=== PATIENT | female | born 1955 | race Caucasian/White ===

== ENCOUNTER → 2020-09-29 12:44 | Outpatient (CLI) | payer SELFPAY ==
--- NOTE | 2020-09-29 12:46 | EKG12_ITS ---
Test Reason : PRE OP Blood Pressure : / mmHG Vent. Rate : 084 BPM Atrial Rate : 091 BPM P-R Int : 154 ms QRS Dur : 080 ms QT Int : 316 ms P-R-T Axes : 068 045 078 degrees QTc Int : 373 ms Sinus rhythm with marked sinus arrhythmia with occasional Premature ventricular complexes Otherwise normal ECG Confirmed by TAMMY BLAS, JERRY ([id number]), purchasing expeditor ROHINI DOMINGUEZ ([id number]) on 09/30/2020 12:23:57 PM Referred By: Lan Kerns Confirmed By:JERRY MUNOZ MD
--- NOTE | 2020-09-29 12:48 | CT_ITS ---
STUDY: CT RIGHT LOWER EXTREMITY REASON FOR EXAM: Varus deformity of the right knee, preoperative planning. TECHNIQUE: Transaxial CT imaging of the lower extremity was performed. Coronal and sagittal images were reformatted. Individualized dose optimization techniques were used for this CT. COMPARISON: None. FINDINGS: Knee: There are marginal osteophytes, joint space narrowing, subchondral cystic change and pressure erosion of the medial tibial plateau (sagittal reconstructions 37-41). Normal lateral femoral condyle and lateral tibial plateau. There is preservation of the articular joint space of the lateral knee compartment. There are marginal osteophytes and mild joint space narrowing of the patellofemoral articulation (sagittal reconstruction 32). Normal proximal tibiofibular articulation. There is a small joint effusion. The quadriceps tendon is grossly normal. The patellar tendon is grossly normal. Normal Hoffa''s fat pad. There are small phleboliths anterior to the proximal tibia. Hip: There is joint space narrowing of the superior medial right hip (coronal reconstructions 53). There are partially calcified uterine fibroids (coronal reconstruction 63-106). Ankle: There is a very small subchondral cyst of the tibial plafond (sagittal reconstruction 32) without joint space narrowing of the tibiotalar articulation. Normal posterior subtalar, talonavicular and calcaneocuboid articulations. There are posterior and plantar calcaneal enthesophytes. CT/Extremity Lower without Contra IMPRESSION: Right knee osteoarthritis. Electronically Signed: Osmani Mccabe MD at 15:00 EDT Tel , Service support ,
== END ==
PROVIDERS: PCP Family Medicine; Referring Provider Specialist; Visit Provider Specialist
DX: M21.161 Varus deformity, not elsewhere classified, right knee (principal)
CPT/HCPCS: 73700; 93005

== ENCOUNTER 2020-10-13 11:44 | Observation (INO) | payer SELFPAY ==
--- NOTE | 2020-09-27 12:55 | PCM.HP.BLA ---
History and Physical History and Physical [facility] Patient Name: Marlena Pearce : 1955 From: FOZIA KLEIN PA-C DATE OF SURGERY: 10/13/2020 SCHEDULED PROCEDURE: right total knee arthroplasty HISTORY OF PRESENT ILLNESS: Preoperative history and physical exam was performed on September 27, 2020. This is a 65-year-old female whose had ongoing pain since October 2019 in which she had a fall on her right knee. Patient's pain has been sharp. It is increased with walking and going up and down steps. Patient has pain over the medial aspect of the knee. She does have start up pain. Patient feels unsafe walking without a cane. She has tried conservative measures including rest, ice with minimal relief. She has tried previous corticosteroid injection with the primary care doctor in January 2020 with only 1 day relief. She has been on oral medications including meloxicam, tramadol, Tylenol with minimal to no relief. Patient denies previous surgery on the right knee. She has continued to use a cane. She has had an MRI of the right knee. 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 We are obtaining surgical clearance from the primary care physician Dr. Vishnu Zurita. Patient denies any recent chest pain, shortness of breath, fevers chills, recent infections. After failing conservative measures and discussing treatment options with Dr. Lan Kerns, the patient does wish to proceed with a right total knee arthroplasty. She has medical history pertinent for hypertension. REVIEW OF SYSTEMS: ROS: Const: Denies change in appetite, fever and weight change. CV: Denies chest pain, heart murmur and irregular heartbeat. Resp: Denies cough, pneumonia, shortness of breath, tuberculosis and wheezing. GI: Denies constipation, diarrhea, heartburn, nausea, rectal itching, bloody stools and vomiting. : Denies incontinence. Musculo: Reports pain, trouble walking and weakness, but denies leg swelling. Skin: Denies Raynaud's, history of shingles and tattoo. Neuro: Denies ambulatory dysfunction, dizziness, numbness/tingling and tremor. Psych: Reports stress, but denies anxiety and insomnia. Ward/Lymph: Denies anemia, bleeding/bruising tendency and past transfusion. Reviewed and updated. PAST MEDICAL HISTORY: Advance Care Plan: No Advance Directives Effective Date: 05/20/2020 PMH: Medical Problems: Arthritis, Asthma, High Blood Pressure Accidents: Other - FELL THROUGH BARN FLOOR: 2 BLOOD COTS REMOVED FROM BRAIN (AGE 8) Surgical Hx: Section - (1995) Anesthesia Complications: None Assistive Devices: Cane, Dentures Reviewed and updated. SOCIAL HISTORY: SH: Marital: .Occupation: Homemaker.Work Status: Not Working Currently.Hand Dominance: Right-handed. Personal Habits: Cigarette Use: Never Smoked Cigarettes.Smokeless Tobacco: Never Used Smokeless Tobacco.E-Cigarette Use: Never used.Alcohol: Occasionally.Drug Use: Denies Use.Enjoy Exercising: Exercises 1-3 x/month. Reviewed and updated. VITALS: Ht: 60.9 Wt: 201lb Wt k.174 BMI: 38.1 BP: 140/90 Pulse: 72 Resp: 16 T: 97.5 T: 36.4C Pain Level: 3 ALLERGIES: No Known Drug Allergy MEDICATIONS: Meloxicam 7.5 mg take one tablet by mouth twice daily, Potassium 99 mg 1po qday, Raw Calcium with vitamin d-3, Cranberry 500 mg 1po qday, Lecithin Concentrate 400 mg 1po qday, Milk Thistle 500 mg 1po qday, Claritin-D 12 Hour 5-120 mg 1po qday, Losartan Potassium 100 mg 1po qday, Hydrochlorothiazide 12.5 mg 1po qday, Hydroxyzine HCL 50 mg 1po qday, Melatonin 10 mg 1po qday, Multivitamins 1po qday, Rd Aspirin Ec Low Dose 81 mg 2po daily, Melaleuca , Nutra Therm , Complete Gest , Levy Complex PRE-OP EXAM: General appearance:NORMAL Other: Eyes: Conjunctivae and lids: NORMAL Pupils: ERR Ears, Nose, Mouth, and Throat: NORMAL Other: Inspection of lips, teeth and gums: NORMAL Other: Neck: Examination of neck: no masses noted. Respiratory: Assessment of respiratory effort: NORMAL Other: Auscultation of lungs: clear to auscultation no wheezes, rhonchi or rales. Cardiovascular: Auscultation of heart: regular rate and rhythm, no murmurs, gallops or rubs. Exam of carotid arteries: NORMAL Other: Gastrointestinal: Exam of abdomen: soft, nontender, nondistended bowel sounds present. PHYSICAL EXAMINATION: Patient walks with an antalgic gait. Right knee is cool to touch without edema or signs of infection. Mild effusion. There is tenderness to palpation over the medial joint line and proximal tibia medially. Range of motion: Lacks 10 of full extension to 120 flexion. Varus alignment which is correctable on exam. Sensation intact to light touch. IMAGING STUDIES: Previous x-rays of the right knee reveal varus alignment with medial joint space narrowing, subchondral sclerosis, osteophyte formation consistent with severe medial compartment osteoarthritis. There appears to be a depression on the medial tibial plateau with underlying radiolucencies consistent with lesion versus resorption healing fracture. Which did show medial tibial plateau having an area of compression consistent with avascular necrosis or subchondral collapse secondary to osteoarthritis. There is associated patellofemoral disease. IMPRESSION: 1. 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 Hypertension 3. Asthma PLAN: Dr. Lan Kerns did discuss and review with the patient all treatment options including surgical versus nonsurgical options. Patient does wish to proceed with the above-stated procedure. Potential risks, benefits, and complications of the procedure were discussed in detail including but not limited to , infection, nerve and blood vessel damage, persistent pain, numbness, tingling, paresthesias, blood clot, pulmonary embolism, and requirement for possible further surgery. The patient expressed full understanding and has no further questions for the doctor. Patient does agree to proceed with the above-stated procedure and has signed the surgery consent form. We discussed the current risks associated with COVID 19. This does include the risk of exposure while in the hospital. Patient was reassured local hospitals have low infection rates and are taking all necessary precautions to avoid exposure to patients. In addition, we discussed strategies that can be used to help limit exposure including those that limit the patient's time in the hospital. Also using strategies to limit the patient's need for continued inpatient services after being discharged from the hospital. Patient was notified that we will need to comply with any screening or testing the hospital wishes to perform or that surgery may be delayed for any positive results. This dictation was created using voice recognition software. Phonetic and/or grammatical errors may exist. ___ I have re-examined the patient. There are no clinical changes since date of exam. ___ See progress notes for changes. ___ Dictated on admission Date: Time: Signature:
[2020-09-29 15:22] LABS: Absolute Lymphocyte Count 3.18 X10^3/uL (0.83-4.51); Absolute Neutrophil Count 3.9 X10^3/uL (2.0-7.7); Basophil# 0.07 X10^3/uL; Basophil% 0.8 % (0-1); Eosinophil# 0.44 X10^3/uL; Eosinophils% 5.3 % (0-5); Hematocrit 42.9 % (37-47); Hemoglobin 14.3 g/dL (12.0-15.0); Lymphocyte # 3.18 X10^3/ul (4.0); Lymphocyte % 38.1 % (19-41); Mean Corp Hgb Conc 33.3 g/dL (32-36); Mean Corpuscular Hgb 30.6 pg (27.0-32.0); Mean Corpuscular Volume 91.7 fL (81-99); Mean Platelet Vol. 11.2 fl (6.2-12.0); Monocyte% 8.4 % (0-10); NRBC Flagged by Analyzer 0 % (0-5); Neutrophil # 3.94 X10^3/uL (2.7-7.7); Neutrophil % 47.3 % (47-70); Platelet Count 327 K/mm3 (150-450); RBC Distribution Width CV 13.4 % (11.6-14.6); RBC Distribution Width SD 45.2 fl (35.1-43.9); Red Blood Count 4.68 M/mm3 (4.2-5.4); White Blood Count 8.3 K/mm3 (4.4-11.0)
[2020-09-29 15:44] LABS: Anion Gap 7 (5-15); BUN 22 mg/dL (7-18); BUN/Creat Ratio 26.1 RATIO (10-20); Calcium,Total 9.5 mg/dL (8.5-10.1); Chloride 103 mmol/L (98-107); Creatinine, Serum 0.84 mg/dL (0.55-1.02); EST Glomerular Filtration Rate 72 mL/min (>60); Est Glom Filt Rate - Afr Amer 87 mL/min (>60); Glucose 81 mg/dL (74-106); Magnesium 2.2 mg/dL (1.6-2.6); Potassium 3.2 mmol/L (3.5-5.1); Sodium Level 141 mmol/L (136-145)
[2020-10-13] VITALS (14 sets, daily range): BP systolic 88–159; BP diastolic 60–98; PULSE 67–101; RESP 16–20; TEMP 36.3–36.9; O2SAT 95–100; BMI 37.9
--- NOTE | 2020-10-13 | KNEE_PTH ---
PATIENT: AMANDA DEE LOC: [facility] U#:[id number] AGE/SX: 65/F ROOM: IA314 RE10/13/[address]: Dr. Lily Mithcell MD : 1955 BED: 1 DIS: 10/14/2020 SPEC #: [id number] RECD: 10/13/20 14:07 STATUS: MIRANDA REVicky #: [id number] CEE: 10/13/20 00:[address]: Lan Kerns DEPT: SURGICAL PATHOLOGY RECD BY: Zander Hobson ENTERED: 10/14/20 07:41 SP TYPE: TOTAL KNEE OTHR DR: MD Dr. Lily Esquivel MD Dr. Steven Widmer, MD Dr. Zachary Boyd, MD Tissues: Knee, NOS Procedures: Decalcification bone/plaque Surgery Specimen Level IV Comments: @ Ordering doctor for DEC edited from to DR.SWIDME Portillo by VALDO at 10/14/20 144 @ Ordering doctor for SUIV edited from to @ by VALDO at 10/14/20 144 @ Submitting doctor edited from to DR.SWIDME Portillo by VALDO at 10/14/20 1442 HEADER OPERATION: ERAS, total knee replacement robotic arm assist PRE-OP DIAGNOSIS: Right knee primary osteoarthritis TISSUE SUBMITTED: Bone and tissue right knee MICROSCOPIC DIAGNOSIS Bone and soft tissue of right knee, total knee resection: Consistent with severe degenerative joint disease. Mild synovial hyperplasia. AM:silviano 10/20/2020 MICROSCOPIC DESCRIPTION Slides are reviewed. GROSS DESCRIPTION Received is one container designated debrided bone and tissue right knee. The specimen consists of multiple fragments of fitzgerald-yellow bone measuring in aggregate 9 x 8 x 3 cm. Also in the specimen container are multiple fragments of yellow-white soft tissue measuring in aggregate 7.5 x 7 x 3 cm. A number of bony fragments contain articular surfaces consistent with tibial plateau and femoral condyle and displaying prominent osteophyte formation, eburnation, and bone erosion. Design Draftsman sections are submitted in two cassettes as follows: 1 - soft tissue, 2 - bone after decalcification. / KAYODE:silviano 10/14/20 TC:5 CPT: 19724, 42516
[2020-10-13] MEDS: Lactated Ringers 1,000 ML 999 ML IV ×2 (10:40→14:00)
[2020-10-13] MEDS: Scopolamine 1mg/72hr Patch 1 PATCH TD (10:50)
[2020-10-13] MEDS: Celecoxib 200 MG Capsule 400 MG PO (11:06)
[2020-10-13] MEDS: Gabapentin 600 MG Tablet PO (11:07)
[2020-10-13] MEDS: Acetaminophen 500 MG Tablet 1000 MG PO ×2 (11:07→20:28)
--- NOTE | 2020-10-13 11:45 | RAD_ITS ---
STUDY: X-RAY - RIGHT KNEE REASON FOR EXAM: Female, 65 years old. post op -- AP and Lateral xray of operative knee in PACU TECHNIQUE: 2 view(s) of the knee. COMPARISON: None. FINDINGS: Normal visualized distal femur. Normal visualized proximal tibia and fibula. Normal proximal tibiofibular articulation. There is a right catheter passing good alignment. RAD/Knee 1 or 2 Views IMPRESSION: There is a right catheter passing good alignment. Electronically Signed: Elise Null MD at 16:12 EDT Tel , Service support ,
--- NOTE | 2020-10-13 11:49 | OP.PCM_ITS ---
Report of Operation Date of Procedure: 10/13/20 Pre-Operative Diagnosis: Right knee primary osteoarthritis Post-Operative Diagnosis: Right knee primary osteoarthritis Surgery/Procedure Performed:: Robotic assisted minimally invasive right total knee replacement Description of Surgical Findings:: Stable knee with good patella tracking casino floor walker: Cricket Gary Type of Anesthesia:: Spinal Anesthesiologist: Tadeo Almaguer Special Medications: 2 g Ancef, 1 g TXA at incision, 1 g TXA closure, 10 mg Decadron, joint cocktail (5 mg Duramorph, 30 mL of 0.5% Ropivicaine, 1000 units of epinephrine, 30 mg of Toradol) Specimen's removed: Bony cuts were sent to pathology Estimated Blood Loss (mL): 35 Fluids Replaced: 100 mL crystalloid Description of Procedure: Implants used: 1. Rolo size 2 triathlon cruciate retaining distal femoral press-fit component 2. Rolo size 2 press-fit tritanium tibial baseplate 3. Rolo X3 9 mm CS polyethylene 4. Rolo X3 29 mm asymmetric patella Brief history operative indications: 65-year-old female with history of right knee osteoarthritis with radiographic findings with loss of joint space, osteophyte formation and subchondral sclerosis. Failed conservative measures as mentioned in the H&P. Discussion of total knee arthroplasty as well as risk and benefits were discussed the patient including but not limited to blood loss, DVTs, PEs, neurovascular damage, general risk of anesthesia including loss of life, and stiffness or instability were discussed with patient. Patient demonstrated understanding and was able to sign informed consent. Procedure: On the date of procedure patient's right lower extremity was marked in the preoperative area. The patient was then taken back to the operating room where the patient was placed on the table in the supine position. All bony prominences were identified a well-padded. Anesthesia assumed control of the C-spine and airway and remained controlled throughout the remainder of the procedure. A tourniquet was placed on the right upper thigh and the leg was prepped in a sterile fashion. The surgeon then scrubbed at this time .Upon reentering the room right lower extremity was draped in a standard orthopedic fashion. A timeout was then called and everyone agreed upon the side, the site, the procedure to be performed, patient's identity and antibiotics given. Esmarch bandage was used to exsanguinate the extremity and the tourniquet was placed up to 250 mmHg with the knee in flexion. A midline skin incision was made and sharp dissection was taken down through skin subcutaneous tissue and fat. The standard medial parapatellar incision was made and the patella was subluxed laterally. An Appropriate deep MCL release was done and the fat pad was resected. Our attention was then directed to the patella. The patella was everted and a flat resection was made. The knee was then flexed up in 2 femoral pins were placed inside the incision and 2 tibial pins were placed outside the incision in the medial tibia bicortically. Once this was completed the 2 checkpoints in the femur and tibia were placed. Knee was then flexed up and the bony landmarks were registered. Once this was completed knee was taken through range of motion and manually stressed allowing us to a plan for an appropriate tibial cut. The robotic arm was brought into the field sterilely and checkpoint and saw were registered. Based on the patient's deformity the tibial cut was made 3 degrees of varus. At this time the tensioner was then placed in the joint and ligament tension was checked at 90 degrees and full extension. Based on the patient's ligamentous tension appropriate adjustments were made to the operative plan and ligament releases were done. Once we were happy with our operative plan with balanced flexion and extension gaps our attention was directed to the femur. The robot was brought into the field sterilely and registered. Posterior condylar cuts, anterior chamfer cuts and anterior cuts were appropriately made for a size 2 femur. When these were completed the saws were switched out in the distal femoral and posterior chamfer cuts were made. Protecting the soft tissue throughout this time. A size 2 tibial base plate was selected. the knee was flexed to 90 degrees and the soft tissues and posterior osteophytes were removed from the joint. 40 cc of the periarticular injection was injected into the posterior medial corner of the joint. The appropriate trials were then placed on the femur and tibia. A trial polyethylene was trialed to ensure proper balancing and stability of the knee. The appropriate tibial internal rotation was then marked with a bovie. Our attention was then directed to the patella. The lug holes were drilled and the patella trial was placed. Patellar tracking was checked and deemed appropriate. Once we were happy lug holes were drilled for the femur and trial components were removed. the tibia was subluxed and pinned into place and the keel was punched and drilled appropriately. Final components were verified and opened, and cement was mixed in a vacuum. C4M Simplex cement was used. The wound was copiously irrigated with normal saline. The cyst on the medial tibial plateau was debrided using curettage. We then obtained bone graft from the bony cuts and packed this area. Overall size of the cyst was 1 cm in length by 4 mm in width by 4 mm in depth. Based on where the cyst was as well as placement of the bone packs for the press-fit and overall support of the implant as well as ability to bone graft local autograft we felt press fitting was still appropriate. When the cement was ready the components were impacted into place starting with the tibia, femur and finally cementing the patella. The trial poly component was placed and the knee was placed in full extension. All excess cement was removed in the process. Once the cement had cured the tracking, alignment and balance were verified and a size 9 mm CS polyethylene component was placed. Once the final components were placed a 3-minute dilute Betadine lavage was performed followed by an Irrisept lavage was performed and the wound was copiously irrigated with normal saline solution and the periarticular injection was given. The wound was closed in a layer rodriguez fashion using #1 vicryl interrupted sutures for the arthrotomy, 2-0 interrupted Vicryl suture for the subcuticular layer and evelia for final skin closure. A sterile compressive dressing was then placed. The patient was then awakened from anesthesia, transferred to the [facility] and transferred to the PACU for recovery. Post op plan DVT ppx: ASA 81mg BID, thigh high compression stockings Follow up: in office in 2 weeks for wound check PT: to start POD #0 at hospital, outpatient PT should be arranged. My physician cardiology physician assistant was a vital part of this case. He was important in appropriate retraction during the case, and protection of soft tissues during bony cuts. His intimate knowledge of the case and my steps aided in safe and expedient completion of the procedure as well as appropriate position of the leg during the case. He was also vital in assisting with closure under my direct supervision. Due to the complexity of this case robotic arm was used to assist in the surgery to improve accuracy and clinical outcomes. Grafts/Implants Used: We used allograft from bone cuts on the medial cyst - Complications No intraoperative complications - Admit VTE Documentation VTE Present on Admission: No VTE Mechan Device Prophylaxis: SCD's, Thigh High VALERIANO Bull VTE Pharm Prophylaxis ordered?: Yes
[2020-10-13] MEDS: Cefazolin 2 GM in 0.9% Normal Saline 100 ML IV (12:15)
[2020-10-13] MEDS: dexAMETHasone 10 MG/ML Vial IV (12:41)
[2020-10-13] MEDS: Joint Pain Solution (NO MORPHINE) 100 ML IV (13:41)
[2020-10-13] MEDS: Lactated Ringers 1,000 ML 125 ML IV (16:30)
--- NOTE | 2020-10-13 18:24 | PCM.CONS.GEN ---
Problem List (1) Status post total right knee replacement Status: Acute (2) Hypertension Status: Chronic (3) Osteoarthritis Status: Chronic Qualifiers: Osteoarthritis location: knee Osteoarthritis type: post-traumatic Laterality: right Qualified Code(s): M17.31 - Unilateral post-traumatic osteoarthritis, right knee (4) Hypokalemia Status: Acute Reason for Consult Date of Consultation: 10/13/20 Reason for Consultation: Medical management following right total knee History of Present Illness: The patient is a 65 year old F presented today for a elective right total knee arthroplasty. Per Dr. Kerns we are consulted for medical management. Patient has a medical history of hypertension and osteoarthritis, however patient takes a extensive list of supplements. Discussed with patient and she is aware supplements will not be provided while she is inpatient, verbalized understanding. Patient currently in bed resting comfortably, denies pain. Patient denies fever, chills, shortness of breath, chest pain, nausea, vomiting. Will review patient's home medications. Past Medical History Past Medical History (Chronic Problems): Chronic Problems Hypertension (Chronic) Osteoarthritis (Chronic) Allergies morphine Allergy (Verified 10/13/20 10:54) Other family allergy- shuts organs down Home Medications: Ambulatory Orders Medication Instructions Recorded Ascorbic Acid [Vitamin C] 500 mg PO BID 09/30/20 Aspirin [Aspirin EC] 162 mg PO QHS 09/30/20 Cardiomega 1 tablet PO DAILY 09/30/20 Complete Gest 2 tablet PO DAILY 09/30/20 Cranberry Conc/Ascorbic Acid 1 each PO DAILY 09/30/20 [Cranberry Concentrate Softgel] Herb Laxative 1 tablet PO DAILY 09/30/20 Hydrochlorothiazide [Hctz] 12.5 mg PO DAILY 09/30/20 Hydroxyzine HCl 50 mg PO PRN PRN 09/30/20 Lecithin 1,200 mg PO DAILY 09/30/20 Loratadine/Pseudoephedrine 1 each PO QODAY 09/30/20 [Claritin-D 24 Hour Tablet] Losartan Potassium [Cozaar] 100 mg PO DAILY 09/30/20 Melatonin 5 mg PO QHS 09/30/20 Meloxicam [Mobic] 7.5 mg PO BID 09/30/20 Milk Thistle 500 mg PO DAILY 09/30/20 Multivitamin with Minerals 2 each PO DAILY 09/30/20 [Multiple Vitamin] Nutratherm 2 tablet PO DAILY 09/30/20 Nutratrim 1 tablet PO DAILY 09/30/20 Potassium 99 mg PO QODAY 09/30/20 Provex 4 tablet PO DAILY 09/30/20 Raw Calcium 2 tablet PO DAILY 09/30/20 Recover 2 tablet PO DAILY 09/30/20 Surgical History: - - x1, brain surgery following fall from second story barn. Psychiatric History: No pertinent psych hx CLAIMS COORDINATOR History: No pertinent CLAIMS COORDINATOR history Lives: Spouse/ Significant Other Smoking Status: Never smoker Tobacco Use: Non-smoker Alcohol: Occasional Drugs: None - *Family History Maternal History Items: No pertinent history Paternal History Items: No pertinent history Review of Systems Constitutional: Denies: Chills, Fever, Weight Change HEENT: Denies: Head Aches, Sinus Congestion, Sinus Drainage Cardiovascular: Denies: Chest Pain, Palpitations Respiratory: Denies: Cough, Shortness of breath at rest, Sputum production Gastrointestinal: Denies: Abdominal Pain, Nausea, Vomiting Genitourinary: Denies: Dysuria Musculoskeletal: Denies: Joint Pain, Joint Tenderness Skin: Denies: Rash, Wounds Neurological: Denies: Numbness, Tingling, Focal weakness Psychiatric: Denies: Anxiety, Depression, Homicidal Ideations, Suicidal Ideations Hematologic/ Lymphatic: Denies: Easy Bruising, Easy Bleeding Patient Problems: Active and Suspected Problems Status post total right knee replacement (Acute) - Physical Exam Vitals/I&O's: Vital Signs Temp Pulse Resp BP Pulse Ox 97.5 F L 88 18 136/78 H 95 10/13/20 16:41 10/13/20 16:41 10/13/20 16:41 10/13/20 16:41 10/13/20 16:41 Oxygen Flow Rate (L/min) 6 Oxygen Delivery Method Room Air Weight: 200 lb 13.458 oz Body Mass Index (BMI) 37.9 Intake and Output for Last 24 Hours 10/11/20 10/12/20 10/13/20 23:59 23:59 23:59 Intake Total 2435.5 / 2435.5 Balance 2435.5 / 2435.5 General: Alert, Oriented x3, Cooperative HEENT: Atraumatic, PERRLA, EOMI, Normocephalic Neck: Supple, No JVD, Negative Carotid Bruits Lungs: Clear to auscultation, Normal air movement, No rhonchi, No wheeze, No rales Cardiovascular: Regular rate, Regular Rhythm, Normal S1, Normal S2, No murmurs Abdomen: Bowel Sounds Present, Soft, Non Tender Extremities: Capillary Refill Less than 3 Seconds, Edema - Postop knee, Peripheral Pulses Normal Skin: No rashes, No breakdown Musculoskeletal: No Tenderness to Palpation of Joints or Extremities Neurological: Cranial nerves II-XII grossly intact Psych/Mental Status: Normal Affect, Appropriate Microbiology Past 72 Hours 10/12/20 13:10 Interface Orders SARS-CoV-2 Antigen (Rapid) - Final Current Medications Acetaminophen (Acetaminophen 500 Mg Tablet) 1,000 mg PO Q8 [facility] Aspirin (Aspirin 81 Mg Tab.Chew) 81 mg PO BIDCM [facility] Enteral Nutritional Formula (Ensure Surgery 237 Ml Liquid) 237 ml PO TIDCM [facility] Last Admin: 10/13/20 18:11 Dose: Not Given Documented by: Famotidine (Famotidine 20 Mg Tablet) 20 mg PO DAILY [facility] Hydrochlorothiazide (Hydrochlorothiazide 12.5mg) 12.5 mg PO DAILY [facility] Hydromorphone HCl (Hydromorphone 0.5 Mg/0.5 Ml Syringe) 0.5 mg IV Q2H PRN PRN PRN Reason: Pain Score 6-10 Hydroxyzine Pamoate (Hydroxyzine Jane 25 Mg Capsule) 50 mg PO QHS PRN PRN PRN Reason: SLEEP Lactated Ringer's () 1,000 mls @ 125 mls/hr IV .Q8H [facility] Stop: 10/13/20 20:29 Last Admin: 10/13/20 16:30 Dose: 125 mls/hr Documented by: Cefazolin Sodium () 1 gm in 50 mls @ 150 mls/hr IV Q8H [facility] Stop: 10/14/20 04:34 Sodium Chloride () 250 mls @ 15 mls/hr IV .[id number] PRN PRN Reason: Saline Flush Sodium Chloride () 250 mls @ 15 mls/hr IV .[id number] PRN PRN Reason: Additional IVPB Infusion Insulin Human Lispro (Insulin Lispro 100 Unit/Ml Insuln.Pen) 1 - 6 unit SC Q4H PRN PRN; Protocol PRN Reason: BG>/= 180, SEE PROTOCOL Ketorolac Tromethamine (Ketorolac 15 Mg/Ml Vial) 15 mg IV Q6H PRN PRN PRN Reason: Pain Score 1-5 Stop: 10/15/20 11:45 Losartan Potassium (Losartan Potassium 100 Mg Tablet) 100 mg PO DAILY [facility] Melatonin (Melatonin 10 Mg Tablet) 5 mg PO QHS [facility] Meloxicam (Meloxicam 7.5 Mg Tablet) 7.5 mg PO BID [facility] Ondansetron HCl (Ondansetron 4 Mg/2 Ml Vial) 4 mg IV Q8H PRN PRN PRN Reason: NAUSEA Oxycodone HCl (Oxycodone 5 Mg Tablet) 5 - 10 mg PO Q4H PRN PRN PRN Reason: Pain Score 4-10 Promethazine HCl (Promethazine 25 Mg/Ml Syringe) 12.5 mg IM Q6H PRN PRN; Protocol PRN Reason: NAUSEA/VOMITING Senna/Docusate Sodium (Senna/Docusate Sodium 1 Tablet) 2 tablet PO BID [facility] Sodium Chloride (0.9% Saline Lock 10 Ml Syringe) 10 - 40 ml IV UD PRN PRN Reason: SALINE FLUSH Assessment/Plan All Active Problems Status post total right knee replacement (Acute) Hypokalemia (Acute) 1. Status post right knee arthroplasty related to osteoarthritis -Postop day 0. -Patient currently denies pain, pain medication regimen ordered per orthopedics. -PT/OT ordered. -Polar Care and Bryn wrap ordered. 2. Hypertension -Stable, continue home regimen. 3. Hypokalemia -Potassium chloride 40 mEq x 1 ordered. DVT prophylaxis-SCDs and thigh-high VALERIANO hose This patient was seen by TRESA Adames under the supervision of Dr. Calvo.
[2020-10-13] MEDS: Aspirin 81 MG TAB.CHEW PO (20:26)
[2020-10-13] MEDS: Potassium Chloride Oral Tablet 20 MEQ 40 MEQ PO (20:26)
[2020-10-13] MEDS: Senna/Docusate Sodium 1 Tablet 2 TABLET PO (20:28)
[2020-10-13] MEDS: Cefazolin 1 GM/50 ML BAG IV (20:28)
[2020-10-13] MEDS: MELATONIN 10 MG TABLET 5 MG PO (20:29)
[2020-10-13] MEDS: hydrOXYzine PAM 25 MG Capsule 50 MG PO (20:38)
[2020-10-14] MEDS: Ketorolac 15 MG/ML Vial IV (00:07)
[2020-10-14 03:53] VITALS: BP 115/72; PULSE 81; RESP 18; TEMP 36.7; O2SAT 94
[2020-10-14] MEDS: Cefazolin 1 GM/50 ML BAG IV (03:53)
[2020-10-14] MEDS: Acetaminophen 500 MG Tablet 1000 MG PO ×2 (04:00→14:14)
[2020-10-14 06:20] LABS: Hematocrit 39.8 % (37-47); Hemoglobin 13.1 g/dL (12.0-15.0); Mean Corp Hgb Conc 32.9 g/dL (32-36); Mean Corpuscular Hgb 30.4 pg (27.0-32.0); Mean Corpuscular Volume 92.3 fL (81-99); Mean Platelet Vol. 10.3 fl (6.2-12.0); Platelet Count 291 K/mm3 (150-450); RBC Distribution Width CV 13.3 % (11.6-14.6); RBC Distribution Width SD 45.1 fl (35.1-43.9); Red Blood Count 4.31 M/mm3 (4.2-5.4); White Blood Count 14.6 K/mm3 (4.4-11.0)
[2020-10-14] MEDS: 0.9% Saline Lock 10 ML Syringe IV (06:33)
[2020-10-14 06:48] LABS: Anion Gap 4 (5-15); BUN 14 mg/dL (7-18); BUN/Creat Ratio 21.3 RATIO (10-20); Calcium,Total 8.3 mg/dL (8.5-10.1); Chloride 110 mmol/L (98-107); Creatinine, Serum 0.66 mg/dL (0.55-1.02); EST Glomerular Filtration Rate 97 mL/min (>60); Est Glom Filt Rate - Afr Amer 117 mL/min (>60); Estimated Creatinine Clearance 65.84 ml/min; Glucose 134 mg/dL (74-106); Potassium 3.9 mmol/L (3.5-5.1); Sodium Level 141 mmol/L (136-145)
--- NOTE | 2020-10-14 06:50 | PN.ORTHO_ITS ---
Patient Problems: Active and Suspected Problems Status post total right knee replacement (Acute) Hypokalemia (Acute) Subjective: The patient was sitting in bedside chair upon examination. Patient denies any chest pain, shortness of breath, dizziness, lightheadedness, nausea or vomiting, or calf pain. Pain is controlled on medications. No adverse overnight events. Overall this morning patient is doing very well and has little to no pain in the knee. She did have a block perioperatively. Patient states she does not rememb er if she set up physical therapy but would like to try to get home health for the first 2 weeks. Objective: Vital signs stable and afebrile. Patient is able to plantarflex and dorsiflex actively. Sensation is intact to light touch to saphenous, sural, superficial and deep peroneal, and tibial distribution. Proximal pin site dressing and main dressing are clean dry and intact. Minimal drainage over the distal pin site Negative Homans bilaterally, negative signs and symptoms of DVT. - Physical Exam Vitals/I&O's: Vital Signs Temp Pulse Resp BP Pulse Ox 98.0 F 81 18 115/72 94 10/14/20 03:53 10/14/20 03:53 10/14/20 03:53 10/14/20 03:53 10/14/20 03:53 Oxygen Flow Rate (L/min) 6 Oxygen Delivery Method Room Air Weight: 91.1 kg Body Mass Index (BMI) 37.9 Intake and Output for Last 24 Hours 10/12/20 10/13/20 10/14/20 23:59 23:59 23:59 Intake Total 2735.5 / 2785.5 1050 / 1050 Output Total 1600 / 1600 200 / 200 Balance 1135.5 / 1185.5 850 / 850 General: Alert, Oriented x3, Cooperative, No apparent distress Microbiology Past 72 Hours 10/12/20 13:10 Interface Orders SARS-CoV-2 Antigen (Rapid) - Final Laboratory Results 10/14/20 06:12: WBC 14.6 H, RBC 4.31, Hgb 13.1, Hct 39.8, MCV 92.3, MCH 30.4, MCHC 32.9, RDW Std Deviation 45.1 H, RDW Coeff of Kaushal 13.3, Plt Count 291, MPV 10.3 10/14/20 06:12: Sodium 141, Potassium 3.9, Chloride 110 H, Carbon Dioxide 27.0, Anion Gap 4 L, BUN 14, Creatinine 0.66, Estim Creat Clear Calc 65.84, Est GFR (MDRD) Af Amer 117, Est GFR (MDRD) Non-Af 97, BUN/Creatinine Ratio 21.3 H, Glucose 134 H, Calcium 8.3 L Current Medications Acetaminophen (Acetaminophen 500 Mg Tablet) 1,000 mg PO Q8 [facility] Last Admin: 10/14/20 04:00 Dose: 1,000 mg Documented by: Aspirin (Aspirin 81 Mg Tab.Chew) 81 mg PO BIDCM [facility] Last Admin: 10/13/20 20:26 Dose: 81 mg Documented by: Enteral Nutritional Formula (Ensure Surgery 237 Ml Liquid) 237 ml PO TIDCM [facility] Last Admin: 10/13/20 20:05 Dose: Not Given Documented by: Famotidine (Famotidine 20 Mg Tablet) 20 mg PO DAILY [facility] Hydrochlorothiazide (Hydrochlorothiazide 12.5mg) 12.5 mg PO DAILY [facility] Hydromorphone HCl (Hydromorphone 0.5 Mg/0.5 Ml Syringe) 0.5 mg IV Q2H PRN PRN PRN Reason: Pain Score 6-10 Hydroxyzine Pamoate (Hydroxyzine Jane 25 Mg Capsule) 50 mg PO QHS PRN PRN PRN Reason: SLEEP Last Admin: 10/13/20 20:38 Dose: 50 mg Documented by: Sodium Chloride () 250 mls @ 15 mls/hr IV .[id number] PRN PRN Reason: Saline Flush Sodium Chloride () 250 mls @ 15 mls/hr IV .[id number] PRN PRN Reason: Additional IVPB Infusion Insulin Human Lispro (Insulin Lispro 100 Unit/Ml Insuln.Pen) 1 - 6 unit SC Q4H PRN PRN; Protocol PRN Reason: BG>/= 180, SEE PROTOCOL Ketorolac Tromethamine (Ketorolac 15 Mg/Ml Vial) 15 mg IV Q6H PRN PRN PRN Reason: Pain Score 1-5 Stop: 10/15/20 11:45 Last Admin: 10/14/20 00:07 Dose: 15 mg Documented by: Losartan Potassium (Losartan Potassium 100 Mg Tablet) 100 mg PO DAILY [facility] Melatonin (Melatonin 10 Mg Tablet) 5 mg PO QHS [facility] Last Admin: 10/13/20 20:29 Dose: 5 mg Documented by: Meloxicam (Meloxicam 7.5 Mg Tablet) 7.5 mg PO BID [facility] Ondansetron HCl (Ondansetron 4 Mg/2 Ml Vial) 4 mg IV Q8H PRN PRN PRN Reason: NAUSEA Oxycodone HCl (Oxycodone 5 Mg Tablet) 5 - 10 mg PO Q4H PRN PRN PRN Reason: Pain Score 4-10 Promethazine HCl (Promethazine 25 Mg/Ml Syringe) 12.5 mg IM Q6H PRN PRN; Protocol PRN Reason: NAUSEA/VOMITING Senna/Docusate Sodium (Senna/Docusate Sodium 1 Tablet) 2 tablet PO BID [facility] Last Admin: 10/13/20 20:28 Dose: 2 tablet Documented by: Sodium Chloride (0.9% Saline Lock 10 Ml Syringe) 10 - 40 ml IV UD PRN PRN Reason: SALINE FLUSH Last Admin: 10/14/20 06:33 Dose: 10 ml Documented by: Medical Necessity - Tobacco Use Smoking Status: Never smoker Tobacco Use: Non-smoker Assessment/Plan All Active Problems Status post total right knee replacement (Acute) Hypokalemia (Acute) 1. S/P right total knee arthroplasty POD #1 2. Continue Pain Medications: Tylenol, meloxicam, oxycodone 3. DVT Prophylaxis: Take 81 mg aspirin twice daily for 4 weeks postoperatively for DVT prophylaxis 4. PT/OT: Weightbearing as tolerated 5. H & H: 13.1/39.8, asymptomatic. 6. Reactive leukocytosis: Currently 14.6, afebrile. Patient did receive Decadron intraoperatively 7. Continue postoperative medical management per medicine 8. Encouraged Incentive Spirometry 9. Disposition: Plan will be for possible discharge home today as long as pain is well controlled and patient tolerates physical therapy. We did discuss she had a block with the knee and her pain may increase throughout today. Patient is unaware if she set up physical therapy at her preoperative visit. I will have social science analyst/case management discussed with patient appropriate postoperative therapy versus home health therapy. If we do proceed with home health therapy I only want 2 weeks and then we would transition over to o utpatient physical therapy. Prescriptions will be E scribed to [facility]. She will follow-up per postop instructions. Driving restrictions were discussed with the patient and no driving for 6 weeks postoperatively. I have reviewed the [place] Automated Rx Reporting System (OARRS) report for this patient for refill pattern and other prescriber involvement as part of the appropriate surveillance for the provision of acute and chronic controlled medications. The report was requested and reviewed on the date of this entry and was considered in the prescribing process.
--- NOTE | 2020-10-14 06:59 | DCINST_ITS ---
Discharge Diet: No Restrictions Discharge Activity: May Not Drive May shower in (days): 1 - Okay to shower if dressing is intact to skin. Turn dressing away from water. Do not submerge underwater for 6 weeks postoperatively. Ice area for (Minutes): 20 - Every 1-2 hours while awake Weight Bearing Status: Weight bearing as tolerated Elevate: Operative Extremity Additional Activity Instructions:: Wear elastic stockings for 2 weeks after your surgery. Call your doctor if your incision/area has: Continuous Slow Oozing, Sudden Increased Bleeding, Increased Pain/ Swelling, Increased Redness, Foul Smelling Discharge Call your doctor if you observe: Fever of 101 or Higher, Coldness, Increased Pain, Numbness or Tingling, Change in Color, Calf discomfort, Uncontrolled pain Remove Dressing in (days):: 4 - Okay to remove dressing on October 18, 2020 Additional Instructions: Follow [facility] Post-op Instructions. Once postoperative dressing has been removed only use gentle soap and water over the incision. Do not use any ointments, Neosporin, salves, alcohol pads over the incision for 6 weeks postoperatively. Do not submerge underwater for 6 weeks postoperatively. NO DRIVING FOR 6 WEEKS POST-OPERATIVELY FOLLOWING YOUR RIGHT TOTAL KNEE ARTHROPLASTY Allergies/Adverse Reactions: Allergies morphine Allergy (Verified 10/13/20 10:54) Other family allergy- shuts organs down Medications to take at Discharge Ascorbic Acid [Vitamin C] 500 mg PO BID 09/30/20 Hydrochlorothiazide [Hctz] 12.5 mg PO DAILY 09/30/20 Hydroxyzine HCl 50 mg PO PRN PRN 09/30/20 Loratadine/Pseudoephedrine [Claritin-D 24 Hour Tablet] 1 each PO QODAY 09/30/20 Losartan Potassium [Cozaar] 100 mg PO DAILY 09/30/20 Melatonin 5 mg PO QHS 09/30/20 Multivitamin with Minerals [Multiple Vitamin] 2 each PO DAILY 09/30/20 Potassium 99 mg PO QODAY 09/30/20 Acetaminophen [Tylenol] 1,000 mg PO Q8 #100 tablet 10/14/20 Aspirin [Aspirin, Baby] 81 mg PO BIDCM #60 tablet 10/14/20 Famotidine [Pepcid] 20 mg PO DAILY #30 tablet 10/14/20 Meloxicam [Mobic] 7.5 mg PO BID #60 tablet 10/14/20 Oxycodone [Oxyir] 5 - 10 mg PO Q4H PRN PRN 5 Days #60 tablet 10/14/20 Senna/Docusate Sodium [Senokot-S] 2 tablet PO BID #14 tablet 10/14/20 The following prescriptions were given: Aspirin [Aspirin, Baby] 81 mg PO BIDCM #60 tablet Transmission Status: Pending to [facility] Meloxicam [Mobic] 7.5 mg PO BID #60 tablet Transmission Status: Pending to [facility] Oxycodone [Oxyir] 5 - 10 mg PO Q4H PRN PRN 5 Days #60 tablet PRN Reason: Pain Score 4-10 Transmission Status: Sent to [facility] Famotidine [Pepcid] 20 mg PO DAILY #30 tablet Transmission Status: Pending to [facility] Senna/Docusate Sodium [Senokot-S] 2 tablet PO BID #14 tablet Transmission Status: Pending to [facility] Acetaminophen [Tylenol] 1,000 mg PO Q8 #100 tablet Transmission Status: Pending to [facility] Primary Care Physician: Vishnu Zurita MD [Primary Care Provider] - Test Results: Test results from this visit will be discussed in further detail at your follow- up appointment, if applicable. Please Follow Up With: Physical Therapy When: will set up with case management Please Follow Up With: Cricket Gary PA-C When: 10/27/20 @ 11:00 am
[2020-10-14] MEDS: oxyCODONE 5 MG Tablet PO ×2 (07:34→12:44)
[2020-10-14] MEDS: Ensure Surgery 237 ML LIQUID PO ×2 (07:40→12:45)
[2020-10-14] MEDS: Aspirin 81 MG TAB.CHEW PO (07:40)
[2020-10-14 08:00] VITALS: BP 121/68; PULSE 76; RESP 18; TEMP 36.7; O2SAT 95
[2020-10-14] MEDS: Famotidine 20 MG Tablet PO (09:51)
[2020-10-14] MEDS: Senna/Docusate Sodium 1 Tablet 2 TABLET PO (09:51)
[2020-10-14] MEDS: hydroCHLOROthiazide 12.5mg 12.5 MG PO (09:51)
--- NOTE | 2020-10-14 10:05 | CASEMGMT ---
Addendum entered by Ignacia Jovel 10/14/20 14:04: In to pt room. Pt states she is going to have [facility] see her. She has called to arrange and called 's office for a script to be sent to them. TC to Cricket PEARCE to make aware of the plan. He states that pt should go outpt after 2 wks of HHC. Made pt aware of this. CM called [facility] to cancel appt tomorrow. CM called [facility] and spoke with Brenda who state they have the referral and will see pt on Sunday. States they have all the info needed. No further needs. Addendum entered by Ignacia Jovel 10/14/20 11:41: CM verified with hospital van that pt home is in service area. TC made to [facility] to schedule therapy. Only appt is for tomorrow at 730am. Scheduled appt. Pt is to get to the first appt on own and then the hospital van will be set up for the rest of therapy. Pt insurance requires the bills be submitted to them. IVANA LOCKETT in to pt room to explain the above. Pt states 0730 is too early for her and she cannot make that appt. She asks if the hospital van can pick her up Sunday. Made aware that the van is booking out late next week or into the following, but if she gets evaluated tomorrow, they can coordinate for the van to pick her up next week. Pt is adamant that she is not an early person and she cannot make appt and wishes to cancel. She states she will call and schedule on her own. Pt aware for the best outcome she needs therapy soon after surgery. Original Note: IVANA LOCKETT Assessment: Face to Face with pt for initial transition planning/care coordination assessment. IVANA LOCKETT introduced self and role at [facility], pt voices understanding and consents to assessment. Pt is A/O x4 and answers all questions appropriately at this time. Pt sitting up in chair in no distress. Care providers, pharmacy, and demographics verified/updated. Admitting Dx: R TK with ANNY PCP: Parminder Specialists: Jan Preferred Pharmacy: [facility] for today, normally uses [facility] in [place] Insurance: [facility] LW/HPOA: Pt denies LW and DPOA and denies any info regarding. LNOK: Anish Living Arrangements: Pt lives with in in a single story home with threshold to step into house. Pt reports being I with ADL's. Denies any concerns at home. Transportation: Pt reports her is a truck mechanic and is home this week and then will be gone. States they only have pickup trucks and she is unable to get into vehicle. Pt inquiring about hospital van. CM to check to see if hospital van goes to her home. DME/HHC/SNF: Pt reports having a walker, lift chair, w/c, hospital bed, cane, BSC and grab bars in the tub. Pt denies having any previous HH or SNF stays. Pt does not have therapy set up. She is not sure it is covered under her insurance. She requests hospital van to take her to [facility]. Pt states no concerns with going home at time of dc. Pt states no further concerns/needs. CM to follow. Advised pt to ask CM if any further question/concerns/needs arise, voices understanding. Pt Goal: Home with hospital van to transport to [facility]. Plan[facility]
[2020-10-14] MEDS: Losartan Potassium 100 MG Tablet PO (10:58)
--- NOTE | 2020-10-14 11:14 | PN_ITS ---
Patient Problems: Active and Suspected Problems Status post total right knee replacement (Acute) Hypokalemia (Acute) Subjective: Patient seen and examined. She has no complaints today. She was about to work with PT/OT at time of review. Review of systems is otherwise negative. Vitals/I&O's: Vital Signs Temp Pulse Resp BP Pulse Ox 98.0 F 76 18 121/68 H 95 10/14/20 08:00 10/14/20 08:00 10/14/20 08:00 10/14/20 08:00 10/14/20 08:00 Oxygen Flow Rate (L/min) 6 Oxygen Delivery Method Room Air Weight: 200 lb 13.458 oz Body Mass Index (BMI) 37.9 Intake and Output for Last 24 Hours 10/12/20 10/13/20 10/14/20 23:59 23:59 23:59 Intake Total 2735.5 / 2785.5 1100 / 1100 Output Total 1600 / 1600 200 / 200 Balance 1135.5 / 1185.5 900 / 900 General: Alert, Oriented x3, Cooperative HEENT: Atraumatic, PERRLA, EOMI, Normocephalic Oral: Moist Mucosa Neck: Supple, No JVD, Negative Carotid Bruits Lungs: Clear to auscultation, Normal air movement Cardiovascular: Regular rate, No murmurs Abdomen: Bowel Sounds Present, Soft, Non Tender Extremities: No clubbing, No cyanosis, No edema, Capillary Refill Less than 3 Seconds Skin: No rashes, No breakdown Musculoskeletal: No Tenderness to Palpation of Joints or Extremities, - - intact dressing over right knee Lymphatic: No Cervical, Supraclavicular, or Inguinal Adenopathy Neurological: Cranial nerves II-XII grossly intact Psych/Mental Status: Normal Affect, Appropriate, Alert and oriented to time, place, person, mood and affect Microbiology Past 72 Hours 10/12/20 13:10 Interface Orders SARS-CoV-2 Antigen (Rapid) - Final Laboratory Results 10/14/20 06:12: WBC 14.6 H, RBC 4.31, Hgb 13.1, Hct 39.8, MCV 92.3, MCH 30.4, MCHC 32.9, RDW Std Deviation 45.1 H, RDW Coeff of Kaushal 13.3, Plt Count 291, MPV 10.3 10/14/20 06:12: Sodium 141, Potassium 3.9, Chloride 110 H, Carbon Dioxide 27.0, Anion Gap 4 L, BUN 14, Creatinine 0.66, Estim Creat Clear Calc 65.84, Est GFR (MDRD) Af Amer 117, Est GFR (MDRD) Non-Af 97, BUN/Creatinine Ratio 21.3 H, Glucose 134 H, Calcium 8.3 L Diagnostic Data Knee X-Ray 10/13/20 11:45 IMPRESSION: There is a right catheter passing good alignment. Electronically Signed: Elise Null MD at 16:12 EDT Tel , Service support , Current Medications Acetaminophen (Acetaminophen 500 Mg Tablet) 1,000 mg PO Q8 [facility] Last Admin: 10/14/20 04:00 Dose: 1,000 mg Documented by: Aspirin (Aspirin 81 Mg Tab.Chew) 81 mg PO BIDCM [facility] Last Admin: 10/14/20 07:40 Dose: 81 mg Documented by: Enteral Nutritional Formula (Ensure Surgery 237 Ml Liquid) 237 ml PO TIDCM [facility] Last Admin: 10/14/20 07:40 Dose: 237 ml Documented by: Famotidine (Famotidine 20 Mg Tablet) 20 mg PO DAILY [facility] Last Admin: 10/14/20 09:51 Dose: 20 mg Documented by: Hydrochlorothiazide (Hydrochlorothiazide 12.5mg) 12.5 mg PO DAILY [facility] Last Admin: 10/14/20 09:51 Dose: 12.5 mg Documented by: Hydromorphone HCl (Hydromorphone 0.5 Mg/0.5 Ml Syringe) 0.5 mg IV Q2H PRN PRN PRN Reason: Pain Score 6-10 Hydroxyzine Pamoate (Hydroxyzine Jane 25 Mg Capsule) 50 mg PO QHS PRN PRN PRN Reason: SLEEP Last Admin: 10/13/20 20:38 Dose: 50 mg Documented by: Sodium Chloride () 250 mls @ 15 mls/hr IV .[id number] PRN PRN Reason: Saline Flush Sodium Chloride () 250 mls @ 15 mls/hr IV .[id number] PRN PRN Reason: Additional IVPB Infusion Insulin Human Lispro (Insulin Lispro 100 Unit/Ml Insuln.Pen) 1 - 6 unit SC Q4H PRN PRN; Protocol PRN Reason: BG>/= 180, SEE PROTOCOL Ketorolac Tromethamine (Ketorolac 15 Mg/Ml Vial) 15 mg IV Q6H PRN PRN PRN Reason: Pain Score 1-5 Stop: 10/15/20 11:45 Last Admin: 10/14/20 00:07 Dose: 15 mg Documented by: Losartan Potassium (Losartan Potassium 100 Mg Tablet) 100 mg PO DAILY [facility] Last Admin: 10/14/20 10:58 Dose: 100 mg Documented by: Melatonin (Melatonin 10 Mg Tablet) 5 mg PO QHS [facility] Last Admin: 10/13/20 20:29 Dose: 5 mg Documented by: Meloxicam (Meloxicam 7.5 Mg Tablet) 7.5 mg PO BID [facility] Ondansetron HCl (Ondansetron 4 Mg/2 Ml Vial) 4 mg IV Q8H PRN PRN PRN Reason: NAUSEA Oxycodone HCl (Oxycodone 5 Mg Tablet) 5 - 10 mg PO Q4H PRN PRN PRN Reason: Pain Score 4-10 Last Admin: 10/14/20 07:34 Dose: 10 mg Documented by: Promethazine HCl (Promethazine 25 Mg/Ml Syringe) 12.5 mg IM Q6H PRN PRN; Protocol PRN Reason: NAUSEA/VOMITING Senna/Docusate Sodium (Senna/Docusate Sodium 1 Tablet) 2 tablet PO BID [facility] Last Admin: 10/14/20 09:51 Dose: 2 tablet Documented by: Sodium Chloride (0.9% Saline Lock 10 Ml Syringe) 10 - 40 ml IV UD PRN PRN Reason: SALINE FLUSH Last Admin: 10/14/20 06:33 Dose: 10 ml Documented by: STROKE Vital Signs/Narrative: Vital Signs Temp Pulse Resp BP Pulse Ox 10/14/20 08:00 98.0 F 76 18 121/68 H 95 Medical Necessity - Tobacco Use Smoking Status: Never smoker Tobacco Use: Non-smoker Assessment/Plan All Active Problems Status post total right knee replacement (Acute) Hypokalemia (Acute) #Right knee replacement due to osteoarthritis * today is POD 1 * pain is well controlled * pain control as per orthopedics * PT/OT on board * fall precautions * #Hypertension: controlled. continue losartan and HCTZ DVT prophylaxis: on aspirin 81mg bid as per orthopedics OBSV E&M: [id number] Subsequent observation care L2
[2020-10-14 15:39] VITALS: BP 118/70; PULSE 70; RESP 18; TEMP 36.8; O2SAT 97
== END 2020-10-14 16:00 | disposition home or self-care (01) ==
LOC: SDC 12:31 → MS3 12:31
PROVIDERS: Admitting Provider Specialist; PCP Family Medicine; Referring Provider Specialist; Visit Provider Student in an Organized Health Care Education/Training Program
PROC: 0SRC0JZ Replacement of Right Knee Joint with Synthetic Substitute, Open Approach (ICD-10-PCS; CPT 27447; principal; 2020-10-13 12:00)
DX: M17.11 Unilateral primary osteoarthritis, right knee (principal); I10 Essential (primary) hypertension; J45.909 Unspecified asthma, uncomplicated; E87.6 Hypokalemia; E66.9 Obesity, unspecified; Z79.899 Other long term (current) drug therapy; Z79.82 Long term (current) use of aspirin; Z68.37 Body mass index [BMI] 37.0-37.9, adult
CPT/HCPCS: 01402; 27447; 64447; S2900; 36415; 73560; 80048; 83735; 85025; 85027; 87077; 87081; 87426; 88305; 88311; 96361; 96365; 96366; 96375; 97110; 97116; 97162; 97166; 97530; 97535; 99218; 99251; C1776; C9803; J7120; A4216; G0378; G0379; G0463